=== PATIENT | male | born 1975 | race Caucasian/White ===

== ENCOUNTER 2017-04-29 00:41 | Emergency (ER) | payer OTHER, SELFPAY ==
[2017-04-29 00:42] VITALS: BP 162/99; PULSE 98; RESP 16; TEMP 36.9; O2SAT 98; BMI 31.0
--- NOTE | 2017-04-29 00:51 | XR_ITS ---
XR chest 2V HISTORY: ITS.REASON: chest pain ORDERING PHYSICIAN: Brandon Sharp MD PATIENT AGE: 41 years COMPARISON: None available FINDINGS: The cardiomediastinal silhouette and pulmonary vascularity are within normal limits. The lungs are clear without infiltrates, suspicious nodules, or pleural effusions. Calcified granuloma right upper lobe No acute bony abnormalities. IMPRESSION: No acute finding
[2017-04-29 01:07] LABS: Basophils % 0.4 % (0.1-2.0); Eosinophils # 0.1 K/mm3 (0.0-0.4); Eosinophils % 1.8 % (0.1-12.0); Hematocrit 43.9 % (42.0-52.0); Lymphocytes # 3.2 K/mm3 (0.7-4.5); Lymphocytes % 45.4 K/mm3 (10-50); Mean Corpuscular HGB Conc 34.1 g/dL (31.8-35.4); Mean Corpuscular Hemoglobin 30.6 pg (27.0-31.2); Mean Corpuscular Volume 89.6 fl (80-94); Mean Platelet Volume 7.8 fl (7.4-10.4); Monocytes # 0.4 K/mm3 (0.1-1.0); Monocytes % 5.4 % (1.7-9.3); Neutrophils # 3.3 K/mm3 (1.8-7.8); Neutrophils % 46.9 % (37.0-80.0); Platelet Count 196 K/mm3 (142-424); Red Cell Distribution Width 13.1 % (11.5-17.5)
[2017-04-29 01:32] LABS: Alanine Aminotransferase 44 U/L (12-78); Albumin Level 3.8 gm/dL (3.4-5.0); Albumin/Globulin Ratio 1.1 (1.1-1.8); Alkaline Phosphatase 85 U/L (46-116); Anion Gap 15.4 mEq/L (5-15); Aspartate Amino Transferase 24 U/L (15-37); Bilirubin,Total 0.2 mg/dL (0.2-1.0); Blood Urea Nitrogen 17 mg/dL (7-18); CKMB Relative Index 1.6 U/L (0-4.0); Calcium 9.1 mg/dL (8.5-10.1); Carbon Dioxide 27 mmol/L (21.0-32.0); Chloride 104 mmol/L (98-107); Creatine Kinase 178 U/L (39-308); Creatine Kinase MB 2.8 ng/ml (0.0-3.6); Creatinine Clearance Estimated 120 mL/min (0-300); Creatinine,Serum 1.07 mg/dL (0.70-1.30); Estimated Glomerular Filt Rate 75 ml/min (>60); GFR (African American) 91 ML/MIN (>60); Globulin 3.4 gm/dl (1.3-3.2); Glucose 154 mg/dL (74-106); Potassium 3.4 mmoL/L (3.5-5.1); Sodium 143 mmol/L (136-145); Total Protein,Serum 7.2 gm/dL (6.4-8.2); Troponin I < 0.02 ng/ml (0.00-0.06)
[2017-04-29 01:46] VITALS: BP 135/78; PULSE 88; RESP 20; O2SAT 99
[2017-04-29 02:00] VITALS: BP 131/78; PULSE 70; RESP 16; O2SAT 97
--- NOTE | 2017-04-29 02:07 | HMH.EDCP ---
ED Disposition Clinical Impression: Atypical chest pain Disposition: Home, Self-Care Condition on Discharge: Good Additional Instructions: see pcp for follow up - Critical Care Critical Care Time: No Attestation: On 04/29/17, the high probability of a clinically significant, sudden or life threatening deterioration of the following system(s) required my full and direct attention, intervention and personal management. The time I documented below is in addition to time spent performing reported procedures but includes the following listed in this critical care notation. Medical Decision Making - Medical Records Medical records reviewed: Yes: I reviewed the patient's medical records. - Brian Inquiry Pt receiving controlled substance: No Vital Signs: 04/29/17 00:42 04/29/17 01:46 Temperature 98.4 F Temperature Source Oral Pulse Rate [Right Brachial] 98 H 88 Respiratory Rate 16 20 Blood Pressure [Right Arm] 162/99 135/78 Blood Pressure Mean [Right Arm] 120 97 Blood Pressure Source [Right Arm] Automatic Cuff Blood Pressure Position [Right Arm] Sitting 02 Sat by Pulse Oximetry 98 99 Oxygen Delivery Method Room Air - Lab Data Lab results reviewed: Yes: I reviewed the patient's lab results. Lab Results 04/29/17 00:50: WBC 7.0, RBC 4.90, Hgb 15.0, Hct 43.9, MCV 89.6, MCH 30.6, MCHC 34.1, RDW 13.1, Plt Count 196, MPV 7.8, Neut % (Auto) 46.9, Lymph % (Auto) 45.4, [place] % (Auto) 5.4, Eos % (Auto) 1.8, Baso % (Auto) 0.4, Neut # (Auto) 3.3, Lymph # (Auto) 3.2, [place] # (Auto) 0.4, Eos # (Auto) 0.1, Baso # (Auto) 0.0 04/29/17 00:50: Sodium 143, Potassium 3.4 L, Chloride 104, Carbon Dioxide 27, Anion Gap 15.4 H, BUN 17, Creatinine 1.07, Estimated Creat Clear 120, Estimated GFR 75, Est GFR ( Amer) 91, Glucose 154 H, Calcium 9.1, Total Bilirubin 0.2, AST 24, ALT 44, Alkaline Phosphatase 85, Total Creatine Kinase 178, CK-MB (CK-2) 2.8, CK-MB (CK-2) Rel Index 1.6, Troponin I < 0.02, Total Protein 7.2, Albumin 3.8, Globulin 3.4 H, Albumin/Globulin Ratio 1.1 Result diagrams: 04/29/17 00:50 04/29/17 00:50 Orders (Tests/Meds): ED MEDICATIONS Discontinued Medications Generic Name Dose Route Start Last Admin Trade Name Cedric PRN Reason Stop Dose Admin Aspirin 324 mg 04/29/17 00:53 04/29/17 01:14 Aspirin 81mg Chewable Tablet PO 04/29/17 00:54 324 mg ONCE ONE Administration ORDERS Category Date Time Status XR chest 2V Stat Exams 04/29/17 00:51 Taken - Radiology Data #1 Image(s): Chest Image Reviewed: Yes I reviewed the patient's radiology image Preliminary Findings: Normal/NAD - ECG Data Tracing #1 I reviewed this ECG and interpreted as documented below: Normal Sinus Rhythm: Yes Ischemic changes: non-specific ST-T wave changes Chest Pain HPI - General Chief Complaint: Chest Pain Stated Complaint: Chest pain Time Seen by Provider: 04/29/17 02:07 Mode of Arrival: Ambulatory Source of Information: Patient Limitations: No Limitations Description of Symptoms (Recalled from ER Triage Doc. by RN): Patient c/o achey feeling in his neck, upper back that comes around to his chest and into his left arm that started this morning. - History of Present Illness HPI narrative: upper neck and lt sided chest pain which has progressed during the days MD complaint: chest pain Duration: intermittent Pain location: left chest Severity: moderate Quality: aching Pain radiation: LUE Exacerbating factors: movement - Related Data Allergies Allergy/AdvReac Type Severity Reaction Status Date / Time No Known Allergies Allergy Verified 04/29/17 00:46 [facility] History I have reviewed the patient's past medical history: Yes Medical History: Denies:: Cancer, Diabetes Mellitus Type 1, Diabetes Mellitus Type 2, MRSA Amputation: No Fractures: No - Social History Alcohol Intake: never - Psychiatric History Expresses thoughts of harming self/others: None Suicid
--- NOTE | 2017-04-29 02:10 | ED_ITS ---
ED Disposition Clinical Impression: Atypical chest pain Disposition: Home, Self-Care Condition on Discharge: Good Additional Instructions: see pcp for follow up - Critical Care Critical Care Time: No Attestation: On 04/29/17, the high probability of a clinically significant, sudden or life threatening deterioration of the following system(s) required my full and direct attention, intervention and personal management. The time I documented below is in addition to time spent performing reported procedures but includes the following listed in this critical care notation. Medical Decision Making - Medical Records Medical records reviewed: Yes: I reviewed the patient's medical records. - Brian Inquiry Pt receiving controlled substance: No Vital Signs: 04/29/17 00:42 04/29/17 01:46 Temperature 98.4 F Temperature Source Oral Pulse Rate [Right Brachial] 98 H 88 Respiratory Rate 16 20 Blood Pressure [Right Arm] 162/99 135/78 Blood Pressure Mean [Right Arm] 120 97 Blood Pressure Source [Right Arm] Automatic Cuff Blood Pressure Position [Right Arm] Sitting 02 Sat by Pulse Oximetry 98 99 Oxygen Delivery Method Room Air - Lab Data Lab results reviewed: Yes: I reviewed the patient's lab results. Lab Results 04/29/17 00:50: WBC 7.0, RBC 4.90, Hgb 15.0, Hct 43.9, MCV 89.6, MCH 30.6, MCHC 34.1, RDW 13.1, Plt Count 196, MPV 7.8, Neut % (Auto) 46.9, Lymph % (Auto) 45.4 , [place] % (Auto) 5.4, Eos % (Auto) 1.8, Baso % (Auto) 0.4, Neut # (Auto) 3.3, Lymph # (Auto) 3.2, [place] # (Auto) 0.4, Eos # (Auto) 0.1, Baso # (Auto) 0.0 04/29/17 00:50: Sodium 143, Potassium 3.4 L, Chloride 104, Carbon Dioxide 27, Anion Gap 15.4 H, BUN 17, Creatinine 1.07, Estimated Creat Clear 120, Estimated GFR 75, Est GFR ( Amer) 91, Glucose 154 H, Calcium 9.1, Total Bilirubin 0.2, AST 24, ALT 44, Alkaline Phosphatase 85, Total Creatine Kinase 178, CK-MB ( CK-2) 2.8, CK-MB (CK-2) Rel Index 1.6, Troponin I < 0.02, Total Protein 7.2, Albumin 3.8, Globulin 3.4 H, Albumin/Globulin Ratio 1.1 Result diagrams: 04/29/17 00:50 04/29/17 00:50 Orders (Tests/Meds): ED MEDICATIONS Discontinued Medications Generic Name Dose Route Start Last Admin Trade Name Freq PRN Reason Stop Dose Admin Aspirin 324 mg 04/29/17 00:53 04/29/17 01:14 Aspirin 81mg Chewable Tablet PO 04/29/17 00:54 324 mg ONCE ONE Administration ORDERS Category Date Time Status XR chest 2V Stat Exams 04/29/17 00:51 Taken - Radiology Data #1 Image(s): Chest Image Reviewed: Yes I reviewed the patient's radiology image Preliminary Findings: Normal/NAD - ECG Data Tracing #1 I reviewed this ECG and interpreted as documented below: Normal Sinus Rhythm: Yes Ischemic changes: non-specific ST-T wave changes Chest Pain HPI - General Chief Complaint: Chest Pain Stated Complaint: Chest pain Time Seen by Provider: 04/29/17 02:07 Mode of Arrival: Ambulatory Source of Information: Patient Limitations: No Limitations Description of Symptoms (Recalled from ER Triage Doc. by RN): Patient c/o achey feeling in his neck, upper back that comes around to his chest and into his left arm that started this morning. - History of Present Illness HPI narrative: upper neck and lt sided chest pain which has progressed during the
[2017-04-29 02:31] VITALS: BP 132/80; PULSE 80; RESP 16; TEMP 36.9; O2SAT 98
== END 2017-04-29 02:32 | disposition home or self-care (01) ==
PROVIDERS: Emergency Provider Emergency Medicine
DX: R07.89 Other chest pain (principal)
CPT/HCPCS: 71046; 80053; 82550; 82553; 84484; 85025; 93005; 96374; 96375; 99284

== ENCOUNTER 2019-06-06 07:50 | Emergency (ER) | payer OTHER, SELFPAY ==
[2019-06-06 07:53] VITALS: BP 148/81; PULSE 73; RESP 20; TEMP 36.6; O2SAT 99; BMI 31.7
--- NOTE | 2019-06-06 08:09 | PC.NURSE ---
CALLED [facility] TO LET THEM KNOW ABOUT XRAY
--- NOTE | 2019-06-06 08:09 | XR_ITS ---
PROCEDURE: XR CHEST PORTABLE CLINICAL HISTORY: soa Shortness of air COMPARISON: CXR2V XR chest 2V from 04/29/2017 FINDINGS: The cardiomediastinal silhouette and pulmonary vascularity are within normal limits. The lungs are clear without infiltrates, suspicious nodules, or pleural effusions. No acute bony abnormalities. IMPRESSION: No acute findings. Dictated by: Hansel Martinez MD 06/06/2019 09:11 Electronically signed by Hansel Martinez MD in [place] 06/06/2019 09:11
--- NOTE | 2019-06-06 08:22 | PC.NURSE ---
[facility] CALLED BACK TO LET US KNOW THEY WERE LOOKING FOR A TEST ENGINEER NUCLE[employer] EQUIPMENT TO DO THE XRAYS.
--- NOTE | 2019-06-06 08:24 | HMH.EDGENADL ---
ED Disposition Clinical Impression: Dyspnea on exertion Shoulder pain, right Qualifiers: Chronicity: chronic Qualified Code(s): M25.511 - Pain in right shoulder; G89.29 - Other chronic pain Disposition: Home, Self-Care Condition on Discharge: Good Instructions: DI for Chronic Pain -- Adult, DI for Shortness of Breath Referrals: Provider,Referral, [Primary Care Provider] - 3 days - Critical Care Critical Care Time: No Attestation: On 06/06/19, the high probability of a clinically significant, sudden or life threatening deterioration of the following system(s) required my full and direct attention, intervention and personal management. The time I documented below is in addition to time spent performing reported procedures but includes the following listed in this critical care notation. Medical Decision Making - Medical Records Medical records reviewed: Yes: I reviewed the patient's medical records. - Brian Inquiry Pt receiving controlled substance: No Vital Signs: 06/06/19 07:53 Temperature 97.8 F Temperature Source Oral Pulse Rate [Right] 73 Respiratory Rate 20 Blood Pressure [Right Arm] 148/81 H Blood Pressure Mean [Right Arm] 103 02 Sat by Pulse Oximetry 99 Orders (Tests/Meds): ORDERS Category Date Time Status Chest XR -- portable [XR chest portable] Stat Exams 06/06/19 08:09 Ordered - Radiology Data #1 Image(s): Chest Image Reviewed: Yes I reviewed the patient's radiology image Preliminary Findings: Normal/NAD Medical Decision Narrative: Patient with history now of chronic right shoulder pain. May benefit from orthopedic consult and MRI which can all be arranged outpatient through the [facility] whom he normally sees. Chest x-ray shows no signs of pneumonia, pneumothorax, florid pulmonary edema. He is maintaining oxygen saturations of 99% on room air and is afebrile, unlikely acute infectious etiology given temporal nature of his symptoms. Advised to follow-up with primary care provider concerning this if symptoms persist. General Adult HPI - General Chief complaint: PAIN Stated complaint: right shoulder pain,no accident,SOA Time Seen by Provider: 06/06/19 08:14 Mode of Arrival: Ambulatory Source of Information: Patient Limitations: No Limitations Description of Symptoms (Recalled from ER Triage Doc. by RN): Pt c/o right shoulder pain x1 year that he has been treated outpaintly by the [facility] and states he would like a second opinion. Pt also states when he woke up this am he became very soa and did not pass for 2 hours. Denies cough or fever. - History of Present Illness HPI narrative: This is a 43-year-old male with no significant past medical history who presents to the emergency department for 2 reasons. First he has had right shoulder pain for about 1 year. It is particularly worse around the deltoid and pectoral region with movement and palpation. No recent injury. [facility] no specific etiology identified. He has not had an MRI and is wanting further evaluation. He also complains of shortness of breath worse with exertion that started this morning. He admits that this is been going on for a long time as well. No fevers or cough. He does not smoke cigarettes, but occasionally smokes marijuana. He does not have to take any medication for his shortness of breath. No chest pain. - Related Data Previous Rx's Medication Instructions Recorded predniSONE [Prednisone 20mg 20 mg PO BID #10 tab 12/05/17 Tab] Allergies Allergy/AdvReac Type Severity Reaction Status Date / Time No Known Allergies Allergy Verified 12/05/17 03:06 [facility] History - Hepatitis A Screen Drug use history?: No High risk sexual behaviors?: No History of sexually transmitted infection?: No Currently employed?: No Childcare worker?: No Do you have indoor plumbing?: Yes Do you have electricity?: Yes Attestation statement:: This patient has been screened fo
--- NOTE | 2019-06-06 08:45 | PC.NURSE ---
CALLED [facility] BACK FOR UPDATE ON WHEN PT WOULD GO FOR HIS XRAY, STATED THE TECH WAS ON HER WAY DOWN
[2019-06-06 09:18] VITALS: BP 135/85; PULSE 85; RESP 20; TEMP 36.8; O2SAT 98
== END 2019-06-06 09:19 | disposition home or self-care (01) ==
PROVIDERS: Emergency Provider Emergency Medicine
DX: M25.511 Pain in right shoulder (principal); G89.29 Other chronic pain; R06.09 Other forms of dyspnea
CPT/HCPCS: 71045; 99282

== ENCOUNTER 2019-12-25 14:36 | Emergency (ER) | payer OTHER, SELFPAY ==
[2019-12-25 15:23] VITALS: BP 126/78; PULSE 80; RESP 20; TEMP 36.6; O2SAT 100; BMI 23.5
--- NOTE | 2019-12-25 15:26 | HMH.EDUTC ---
[facility] [place] Disposition Clinical Impression: Exposure to COVID-19 virus Disposition: Home, Self-Care Condition on Discharge: Good Instructions: Preventing the Spread of Coronavirus Discharge Instructions Additional Instructions: *Monitor Temp, Over the counter Motrin or Tylenol as directed/as needed Tylenol every 4 hours and Motrin every 6 hours (as long as your family doctor has told you that you can take it) for fever or pain. and straight to ER if unable to lower temp less than 101.0 after medication given *Warm salt water gargles may help to soothe the throat *Throat Lozenges *Warm fluids like tea with honey may help to soothe the throat *Sleep elevated *Humidifier/Vaporizer Follow up IMMEDIATELY for new or worsening symptoms or no Noticeable improvement over the next 48-72 hours. 911 for difficulty breathing or swallowing You was tested for today for COVID19 your test result should be back in the next 24-48 hours, you may call to the [facility] later today or tomorrow to see if your test results are back and the result [phone] [facility] hours are 9am-9pm You was given a handout with instructions for Self Quarantine and Self isolation for while you wait on test results and what to do if they are positive If you are positive the Health Dept will be contacting you also Referrals: PCP,No [Primary Care Provider] - As needed Forms: Work/School Release Time of Disposition: 15:28 Medical Decision Making - Brian Inquiry Pt receiving controlled substance: No Brian was queried for this patient: No Vital Signs: 12/25/19 15:23 Temperature 97.8 F Temperature Source Oral Pulse Rate [Radial] 80 Respiratory Rate 20 Blood Pressure [Right Arm] 126/78 Blood Pressure Mean [Right Arm] 94 Blood Pressure Source [Right Arm] Automatic Cuff Blood Pressure Position [Right Arm] Sitting 02 Sat by Pulse Oximetry 100 Oxygen Delivery Method Room Air Orders (Tests/Meds): ORDERS Category Date Time Status Covid-19 Nasal PCR ([facility]) Routine Lab 12/25/19 14:56 Received [facility] [place] HPI - General Stated complaint: covid exposure Time Seen by Provider: 12/25/19 15:26 Mode of Arrival: Ambulatory Source of Information: Patient Limitations: No Limitations Description of Symptoms (Recalled from Triage Doc. by RN): COVID TEST HEENT Symptoms (Recalled from RN notes): No Resp Symptoms (Recalled from RN notes): No Skin Symptoms (Recalled from RN notes): No MS Symptoms (Recalled from RN notes): No Functional Status (Recalled from RN notes): WNL - History of Present Illness Provider Complaint: Patient states that he worked with someone last week that has since tested positive for COVID Statest that he isnt having any symptoms but wanted to get checked to make sure that he didnt have it because his has multiple medical problems - Related Data Previous Rx's Medication Instructions Recorded predniSONE [Prednisone 20mg 20 mg PO BID #10 tab 12/05/17 Tab] Allergies Allergy/AdvReac Type Severity Reaction Status Date / Time No Known Allergies Allergy Verified 12/05/17 03:06 - Worker's Comp Is this a Worker's Comp case?: No [facility] History - Hepatitis A Screen Drug use history?: No High risk sexual behaviors?: No History of sexually transmitted infection?: No Currently employed?: No Childcare worker?: No Do you have indoor plumbing?: Yes Do you have electricity?: Yes Attestation statement:: This patient has been screened for Hepatitis A risk factors. I have reviewed the patient's past medical history: Yes Medical History: Denies:: Cancer, Diabetes Mellitus Type 1, Diabetes Mellitus Type 2, MRSA Amputation: No Fractures: No - Social History Smoking Status: Never smoker Alcohol Intake: never Occupational Status: employed Household Members: other ROS Obtained: Yes All systems reviewed & no additional complaints, Yes Systems reviewed as appropriate & no additional complaints - Constitutional Constitutional:
[2019-12-25 15:38] VITALS: BP 126/78; PULSE 80; RESP 20; TEMP 36.6; O2SAT 100
== END 2019-12-25 15:39 | disposition home or self-care (01) ==
PROVIDERS: Emergency Provider Nurse Practitioner
DX: Z20.828 Contact with and (suspected) exposure to other viral communicable diseases (principal)
CPT/HCPCS: 99201; U0003

== ENCOUNTER 2020-02-13 22:27 | Emergency (ER) | payer OTHER, SELFPAY ==
--- NOTE | 2020-02-13 22:16 | ECG_ITS ---
APPROVED REPORT Exam: Resting ECG HR:87 bpm ECG Measurements Heart Rate 87 AXES UT 152 P 67 QRSd 112 QRS 31 QT 386 T 27 QTc 464 Conclusion Normal sinus rhythm Normal ECG Electronically signed by : Umair France, 02/14/2020 06:24:08
[2020-02-13 22:29] VITALS: BP 144/77; BP 181/87; PULSE 81; PULSE 84; RESP 14; RESP 17; TEMP 36.8; O2SAT 97; O2SAT 98; BMI 32.5
--- NOTE | 2020-02-13 22:44 | XR_ITS ---
PROCEDURE: XR CHEST 2V CLINICAL HISTORY: chest pain COMPARISON: CR CXR2V XR chest 2V from 04/29/2017 CR XR CHEST PORTABLE from 06/06/2019 FINDINGS: The cardiomediastinal silhouette and pulmonary vascularity are within normal limits. The lungs are clear without infiltrates, suspicious nodules, or pleural effusions. No acute bony abnormalities. IMPRESSION: No acute findings. Dictated by: Hansel Martinez MD 02/14/2020 05:40 Hansel Martinez MD in [place] 02/14/2020 05:40
[2020-02-13 22:51] LABS: Basophils % 0.4 % (0.1-2.0); Eosinophils # 0.2 K/mm3 (0.0-0.4); Hematocrit 43.7 % (42.0-52.0); Hemoglobin 15.4 g/dL (14.1-18.0); Lymphocytes # 2.3 K/mm3 (0.7-4.5); Lymphocytes % 29.4 % (10-50); Mean Corpuscular HGB Conc 35.2 g/dL (31.8-35.4); Mean Corpuscular Volume 90.9 fl (80-94); Mean Platelet Volume 7.9 fl (7.4-10.4); Monocytes # 0.5 K/mm3 (0.1-1.0); Monocytes % 6.2 % (1.7-9.3); Neutrophils # 4.7 K/mm3 (1.8-7.8); Neutrophils % 60.9 % (37.0-80.0); Platelet Count 204 K/mm3 (142-424); Red Blood Count 4.81 M/mm3 (4.60-6.20); White Blood Count 7.8 K/mm3 (4.8-10.8)
[2020-02-13 22:52] LABS: Chloride 102 mmol/L (98-107); Potassium 3.4 mmoL/L (3.5-5.1); Sodium 139 mmol/L (136-145)
[2020-02-13 22:55] LABS: Anion Gap 13.4 mEq/L (5-15); Blood Urea Nitrogen 19 mg/dl (9-20); Carbon Dioxide 27 mmol/L (22.0-30.0); Creatinine Clearance Estimated 145 mL/min (50-200); Estimated Glomerular Filt Rate 91 ml/min (>60); GFR (African American) 110 ML/MIN (>60)
[2020-02-13 22:56] LABS: Calcium 9.7 mg/dl (8.4-10.2); Glucose 165 mg/dl (74-100)
[2020-02-13 22:59] VITALS: BP 178/96; PULSE 87; RESP 15; O2SAT 96
[2020-02-13 23:12] LABS: Troponin I < 0.01 ng/ml (0.00-0.034)
--- NOTE | 2020-02-13 23:20 | PC.NURSE ---
Patient reports no improvement with nitro sublingual, continues to describ left sided neck/shoulder pain rated 6/10.
[2020-02-13 23:29] VITALS: BP 121/71; PULSE 76; RESP 16; O2SAT 96
[2020-02-13 23:36] LABS: C-Reactive Protein 1.9 mg/L (0-4)
[2020-02-13 23:37] VITALS: BP 127/74; PULSE 75; RESP 17; O2SAT 95
--- NOTE | 2020-02-13 23:38 | PC.NURSE ---
Patient rports pain decreased to 3/10 states pain continues to come and goes feels like a pressure in neck and shoulder area
[2020-02-13 23:42] LABS: Coronavirus 19 IgG Antibody Negative (Negative); Coronavirus 19 IgM Antibody Negative (Negative)
[2020-02-13 23:49] LABS: Erythrocyte Sedimentation Rate 16 mm/hr (0-15); Procalcitonin 0.082 ng/mL (0.0-2.0)
[2020-02-14] VITALS: BP 135/84; PULSE 76; RESP 19; O2SAT 97
--- NOTE | 2020-02-14 00:24 | HMH.EDCP ---
ED Disposition Clinical Impression: Cervical radicular pain, Atypical chest pain Disposition: Home, Self-Care Condition on Discharge: Good Instructions: DI for Atypical Chest Pain Additional Instructions: call pcp for follow up Referrals: PCP,No [Primary Care Provider] - - Critical Care Critical Care Time: No Attestation: On 02/13/20, the high probability of a clinically significant, sudden or life threatening deterioration of the following system(s) required my full and direct attention, intervention and personal management. The time I documented below is in addition to time spent performing reported procedures but includes the following listed in this critical care notation. Medical Decision Making - Medical Records Medical records reviewed: Yes: I reviewed the patient's medical records. - Brian Inquiry Pt receiving controlled substance: No Vital Signs: 02/13/20 22:29 02/13/20 22:59 02/13/20 23:29 Temperature 98.2 F Temperature Source Oral Pulse Rate [Right Brachial] 81 87 76 Respiratory Rate 14 15 16 Blood Pressure [Right Arm] 144/77 H 178/96 H 121/71 Blood Pressure Mean [Right Arm] 99 123 87 Blood Pressure Source [Right Arm] Automatic Cuff Automatic Cuff Automatic Cuff Blood Pressure Position [Right Arm] Sitting Sitting Sitting 02 Sat by Pulse Oximetry 97 96 96 Oxygen Delivery Method Room Air 02/13/20 23:37 02/14/20 00:00 02/14/20 01:24 Temperature Temperature Source Pulse Rate [Right Brachial] 75 76 74 Respiratory Rate 17 19 13 Blood Pressure [Right Arm] 127/74 135/84 142/84 H Blood Pressure Mean [Right Arm] 91 101 103 Blood Pressure Source [Right Arm] Automatic Cuff Automatic Cuff Automatic Cuff Blood Pressure Position [Right Arm] Sitting Supine Supine 02 Sat by Pulse Oximetry 95 97 99 Oxygen Delivery Method Room Air Room Air 02/14/20 01:58 Temperature Temperature Source Pulse Rate [Right Brachial] 77 Respiratory Rate 15 Blood Pressure [Right Arm] 155/85 H Blood Pressure Mean [Right Arm] 108 Blood Pressure Source [Right Arm] Automatic Cuff Blood Pressure Position [Right Arm] Supine 02 Sat by Pulse Oximetry 98 Oxygen Delivery Method Room Air - Lab Data Lab results reviewed: Yes: I reviewed the patient's lab results. Lab Results 02/13/20 22:30: WBC 7.8, RBC 4.81, Hgb 15.4, Hct 43.7, MCV 90.9, MCH 32.0 H, MCHC 35.2, RDW 14.0, Plt Count 204, MPV 7.9, Neut % (Auto) 60.9, Lymph % (Auto) 29.4, [place] % (Auto) 6.2, Eos % (Auto) 3.0, Baso % (Auto) 0.4, Neut # (Auto) 4.7, Lymph # (Auto) 2.3, [place] # (Auto) 0.5, Eos # (Auto) 0.2, Baso # (Auto) 0.0 02/13/20 22:30: Sodium 139, Potassium 3.4 L, Chloride 102, Carbon Dioxide 27, Anion Gap 13.4, BUN 19, Creatinine 0.90, Estimated Creat Clear 145, Estimated GFR 91, Est GFR ( Amer) 110, Glucose 165 H, Calcium 9.7, Troponin I < 0.01 02/13/20 22:30: ESR 16 H 02/13/20 22:30: C-Reactive Protein 1.9, Procalcitonin 0.082 02/13/20 22:30: SARS-CoV-2 IgG Ab (Rapid) Negative, SARS-CoV-2 IgM Ab (Rapid) Negative 02/14/20 01:35: Troponin I < 0.01 Result diagrams: 02/13/20 22:30 02/13/20 22:30 Orders (Tests/Meds): ED MEDICATIONS Generic Name Dose Route Start Last Admin Trade Name Freq PRN Reason Stop Dose Admin Sodium Chloride 1,000 mls @ 999 mls/hr 02/13/20 23:00 02/13/20 22:58 Sod Chlor 0.9% 1000ml Bag IV 02/14/20 00:00 999 mls/hr .Q1H1M NAOMI Administration Discontinued Medications Generic Name Dose Route Start Last Admin Trade Name Freq PRN Reason Stop Dose Admin Aspirin 324 mg 02/13/20 22:56 02/13/20 22:58 Aspirin 81mg Chewable Tablet PO 02/13/20 22:57 324 mg ONCE ONE Administration Ketorolac Tromethamine 30 mg 02/13/20 23:21 02/13/20 23:23 Ketorolac 30mg/Ml Vial IV 02/13/20 23:22 30 mg ONCE ONE Administration Nitroglycerin 0.4 mg 02/13/20 22:56 02/13/20 22:57 Nitroglycerin 0.4mg Sl Tablet SL 02/13/20 22:57 1 tab ONCE ONE Administration ORDERS Category Date Time Stat
--- NOTE | 2020-02-14 00:25 | PC.NURSE ---
Patient resting ion stretcher, denies chest pain at present still verbalizes some pressure to left shoulder region. 04/14
[2020-02-14 01:24] VITALS: BP 142/84; PULSE 74; RESP 13; O2SAT 99
[2020-02-14 01:58] VITALS: BP 155/85; PULSE 77; RESP 15; O2SAT 98
[2020-02-14 02:14] LABS: Troponin I < 0.01 ng/ml (0.00-0.034)
[2020-02-14 02:25] VITALS: BP 155/82; PULSE 73; RESP 14; TEMP 36.8; O2SAT 94
== END 2020-02-14 02:31 | disposition home or self-care (01) ==
PROVIDERS: Emergency Provider Emergency Medicine
DX: M54.12 Radiculopathy, cervical region (principal); R07.89 Other chest pain; Z01.84 Encounter for antibody response examination
CPT/HCPCS: 71046; 80048; 84145; 84484; 85025; 85651; 86140; 86328; 93005; 96365; 96375; 99283

== ENCOUNTER 2023-07-25 14:49 | Outpatient (CLI) | payer OTHER, SELFPAY ==
[2023-07-25] MEDS: ALBUTEROL 0.083% 2.5 MG/3 ML NEB IH (15:14)
--- NOTE | 2023-07-25 15:15 | PC.NURSE ---
PRE & POST Spirometry completed without incident. Albuterol 0.083% given via HHN, per written protocol, Pt tolerated tx well.
--- NOTE | 2023-07-25 15:32 | XR_ITS ---
FINAL REPORT CLINICAL HISTORY: COPD,ASTHMA FINDINGS: No acute pulmonary density is evident. There is no evidence of effusion or other pleural disease. The mediastinum has a normal appearance. The cardiac silhouette is unremarkable. IMPRESSION: Unremarkable chest exam. Reviewed, Interpreted and Dictated by Artur Almeida MD Transcribed by Adwoa Machuca Authenticated and . [facility]
== END 2023-07-25 23:59 | disposition home or self-care (01) ==
LOC: RT 14:51
PROVIDERS: PCP Family Medicine Addiction Medicine; Visit Provider Chiropractor
DX: J96.10 Chronic respiratory failure, unspecified whether with hypoxia or hypercapnia (principal); J44.9 Chronic obstructive pulmonary disease, unspecified
CPT/HCPCS: 71046; 94060; J7613